=== PATIENT | male | born 1950 | race Asian ===

== ENCOUNTER 2020-10-24 18:37 | Inpatient (IN) | payer OTHER ==
[2020-10-24] VITALS (13 sets, daily range): BP systolic 113–154; BP diastolic 63–79
[~2020-10-24] VITALS: Ht 172.7 cm; Wt 77.7 kg
[2020-10-24] MEDS ORDERED: HYDRALAZINE 20MG/ML VIAL IV ONE (19:00)
[2020-10-24] MEDS ORDERED: MANNITOL 20% 500 ML IV NR (19:15)
[2020-10-24] MEDS ORDERED: LEVETIRACETAM 500MG PREMIX 100 ML IV ONE (19:15)
[2020-10-24] MEDS ORDERED: MANNITOL 20% 100 ML IV NR (19:15)
[2020-10-24] MEDS ORDERED: MANNITOL 20% (20GM/100ML) BAG 500ML PREMIX IV ONE (19:15)
[2020-10-24] MEDS ORDERED: DEXAMETHASONE 10 MG/ML VIAL IV ONE (19:15)
[2020-10-24] MEDS ORDERED: NICARDIPINE 40MG/200ML PREMIX 200 ML IV PRN (19:15)
[2020-10-24] MEDS ORDERED: NICARDIPINE 100 MG in SODIUM CHLORIDE 0.9% 60 ML IV PRN (19:15)
[2020-10-24 19:22] LABS: BASOPHILS % 0.9 % (0.0-2.0); EOSINOPHILS % 14.8 % (0.0-5.0); HEMATOCRIT. 44.3 % (42.0-52.0); HEMOGLOBIN. 15.7 g/dL (14.0-18.0); MEAN CORPUSCULAR HEMOGLOBIN 30.5 pg (28.0-32.0); MEAN CORPUSCULAR VOLUME 86.2 fL (80.0-94.0); MEAN PLATELET VOLUME 7.7 fl (7.4-10.4); MONOCYTES % 6.7 % (2.0-8.0); NEUTROPHILS % 39.6 % (40.0-76.0); PLATELET 218 x1000/uL (130-400); RED BLOOD CELL COUNT 5.14 mill/uL (4.7-6.1); RED CELL DISTRIBUTION WIDTH 13.6 % (11.6-14.6)
[2020-10-24 19:30] LABS: CHLORIDE 101 mEq/L (98-107)
[2020-10-24 19:31] LABS: INR 0.9; PROTHROMBIN TIME 10.1 sec (9.6-11.0)
[2020-10-24 19:34] LABS: ETHANOL BLOOD < 10 mg/dL
[2020-10-24 19:37] LABS: LDL CHOLESTEROL 122 mg/dL (5-100)
[2020-10-24 19:39] LABS: CREATINE KINASE 67 IU/L (39-308)
[2020-10-24] MEDS: DEXT 5%/LACTATED RINGERS 1,000 ML IV SCH (20:53)
[2020-10-24 21:55] LABS: CLARITY URINE CLEAR (CLEAR); COLOR URINE YELLOW (YELLOW); KETONES URINE NEGATIVE (NEGATIVE); LEUKOCYTE ESTERASE URINE NEGATIVE (NEGATIVE); NITRITE URINE NEGATIVE (NEGATIVE); OCCULT BLOOD URINE 2+ (NEGATIVE); PH URINE 7.5 (4.5-8.0); PROTEIN URINE 2+ (NEGATIVE); SPECIFIC GRAVITY URINE 1.013 (1.005-1.030); UROBILINOGEN URINE 0.2 E.U./dL (0.2-1.0)
[2020-10-24 22:13] LABS: *AMPHETAMINES SCREEN URINE NEGATIVE (NEGATIVE); *BARBITURATES SCREEN URINE NEGATIVE (NEGATIVE); *BENZODIAZEPINES SCREEN URINE NEGATIVE (NEGATIVE); *COCAINE SCREEN URINE NEGATIVE (NEGATIVE)
[2020-10-24 22:14] LABS: CANNABINOID URINE SCREEN NEGATIVE (NEGATIVE); METHADONE URINE SCREEN NEGATIVE (NEGATIVE); OPIATES URINE SCREEN NEGATIVE (NEGATIVE); PHENCYCLIDINE URINE SCREEN NEGATIVE (NEGATIVE)
[2020-10-24] MEDS ORDERED: DEXTROSE 50% WATER 50ML SYRINGE IV PRN (22:45)
[2020-10-24] MEDS: NICARDIPINE 100 MG in SODIUM CHLORIDE 0.9% 60 ML IV PRN (23:44)
[2020-10-24] MEDS ORDERED: KCL 20MEQ/100ML PREMIX 100 ML IV NR (23:45)
[2020-10-25] VITALS (94 sets, daily range): BP systolic 110–140; BP diastolic 63–100
[2020-10-25] MEDS: BLOOD SUGAR DIAGNOSTIC STRIP TEST SCH ×5 (00:09→20:18)
[2020-10-25] MEDS: INSULIN LISPRO 100 UNITS/ML SUBCUT SCH ×5 (00:14→20:34)
[2020-10-25] MEDS: DEXAMETHASONE 4MG/ML 1ML VIAL IV SCH ×5 (00:15→23:32)
[2020-10-25] MEDS ORDERED: FUROSEMIDE 20MG/2ML VIAL IVP NR (01:00)
[2020-10-25 06:00] LABS: CHLORIDE 104 mEq/L (98-107)
[2020-10-25 06:02] LABS: LDL CHOLESTEROL 138 mg/dL (5-100)
[2020-10-25 06:03] LABS: HDL CHOLESTEROL 41 mg/dL (40-59)
[2020-10-25 06:04] LABS: BASOPHILS % 0.3 % (0.0-2.0); EOSINOPHILS % 0.2 % (0.0-5.0); HEMATOCRIT. 43.8 % (42.0-52.0); HEMOGLOBIN. 14.8 g/dL (14.0-18.0); LYMPHOCYTES % 14.6 % (20.0-50.0); MEAN CORPUSCULAR HEMOGLOBIN 29.4 pg (28.0-32.0); MEAN CORPUSCULAR VOLUME 87.1 fL (80.0-94.0); MEAN PLATELET VOLUME 8.3 fl (7.4-10.4); MONOCYTES % 1.3 % (2.0-8.0); NEUTROPHILS % 83.6 % (40.0-76.0); PLATELET 296 x1000/uL (130-400); RED BLOOD CELL COUNT 5.03 mill/uL (4.7-6.1); RED CELL DISTRIBUTION WIDTH 13.9 % (11.6-14.6)
[2020-10-25] MEDS ORDERED: BLOOD SUGAR DIAGNOSTIC STRIP TEST SCH (06:30)
[2020-10-25] MEDS ORDERED: INSULIN LISPRO 100 UNITS/ML SUBCUT SCH (07:00)
[2020-10-25] MEDS ORDERED: LEVETIRACETAM 500MG PREMIX 100 ML IV SCH (09:00)
[2020-10-25] MEDS: LEVETIRACETAM 500MG PREMIX 100 ML IV SCH ×2 (10:11→20:18)
[2020-10-25] MEDS: PANTOPRAZOLE SODIUM 40 MG/VIAL IV SCH (10:11)
[2020-10-25] MEDS: DEXT 5%/LACTATED RINGERS 1,000 ML IV SCH (12:41)
[2020-10-25] MEDS: NICARDIPINE 100 MG in SODIUM CHLORIDE 0.9% 60 ML IV PRN (15:48)
[2020-10-25] MEDS ORDERED: KCL 20MEQ/100ML PREMIX 100 ML IV NR (17:00)
[2020-10-25] MEDS: MORPHINE SULFATE 2 MG/ML CPJ (NOT FOR IM USE) IV PRN (23:33)
[2020-10-26] VITALS (100 sets, daily range): BP systolic 34–148; BP diastolic 26–98
[2020-10-26] MEDS ORDERED: ASPI-1497 MT (03:39)
[2020-10-26] MEDS: DEXT 5%/LACTATED RINGERS 1,000 ML IV SCH ×2 (03:44→20:33)
[2020-10-26 05:33] LABS: BASOPHILS % 0.1 % (0.0-2.0); HEMOGLOBIN. 14.3 g/dL (14.0-18.0); LYMPHOCYTES % 12.1 % (20.0-50.0); MEAN CORPUSCULAR HEMOGLOBIN 29.2 pg (28.0-32.0); MEAN CORPUSCULAR VOLUME 87.8 fL (80.0-94.0); MEAN PLATELET VOLUME 8.4 fl (7.4-10.4); MONOCYTES % 2.1 % (2.0-8.0); NEUTROPHILS % 85.7 % (40.0-76.0); PLATELET 279 x1000/uL (130-400); RED CELL DISTRIBUTION WIDTH 14.4 % (11.6-14.6)
[2020-10-26 05:40] LABS: CHLORIDE 110 mEq/L (98-107)
[2020-10-26] MEDS: BLOOD SUGAR DIAGNOSTIC STRIP TEST SCH ×4 (05:59→20:33)
[2020-10-26] MEDS: DEXAMETHASONE 4MG/ML 1ML VIAL IV SCH ×3 (06:01→17:10)
[2020-10-26] MEDS: INSULIN LISPRO 100 UNITS/ML SUBCUT SCH ×4 (06:02→20:46)
[2020-10-26] MEDS: NICARDIPINE 100 MG in SODIUM CHLORIDE 0.9% 60 ML IV PRN ×2 (06:40→17:16)
[2020-10-26] MEDS: PANTOPRAZOLE SODIUM 40 MG/VIAL IV SCH (09:21)
[2020-10-26] MEDS: LEVETIRACETAM 500MG PREMIX 100 ML IV SCH ×2 (09:21→20:33)
[2020-10-26] MEDS ORDERED: POTASSIUM CHLORIDE INJ 40 MEQ in DEXT 5% WATER 250 ML IV NR (19:30)
[2020-10-27] VITALS (91 sets, daily range): BP systolic 100–146; BP diastolic 57–95
[2020-10-27] MEDS: NICARDIPINE 100 MG in SODIUM CHLORIDE 0.9% 60 ML IV PRN ×2 (04:42→17:09)
[2020-10-27 05:31] LABS: BASOPHILS % 0.1 % (0.0-2.0); HEMATOCRIT. 40.9 % (42.0-52.0); HEMOGLOBIN. 13.7 g/dL (14.0-18.0); LYMPHOCYTES % 8.3 % (20.0-50.0); MEAN CORPUSCULAR HEMOGLOBIN 29.8 pg (28.0-32.0); MEAN CORPUSCULAR VOLUME 88.7 fL (80.0-94.0); MEAN PLATELET VOLUME 8.3 fl (7.4-10.4); MONOCYTES % 2.5 % (2.0-8.0); NEUTROPHILS % 89.1 % (40.0-76.0); PLATELET 239 x1000/uL (130-400); RED BLOOD CELL COUNT 4.61 mill/uL (4.7-6.1); RED CELL DISTRIBUTION WIDTH 14.8 % (11.6-14.6)
[2020-10-27 05:34] LABS: CHLORIDE 115 mEq/L (98-107)
[2020-10-27] MEDS: BLOOD SUGAR DIAGNOSTIC STRIP TEST SCH ×4 (06:01→20:15)
[2020-10-27] MEDS: INSULIN LISPRO 100 UNITS/ML SUBCUT SCH ×4 (06:06→20:24)
[2020-10-27] MEDS: PANTOPRAZOLE SODIUM 40 MG/VIAL IV SCH (09:40)
[2020-10-27] MEDS: LEVETIRACETAM 500MG PREMIX 100 ML IV SCH ×2 (09:40→20:15)
[2020-10-27] MEDS: DEXT 5%/LACTATED RINGERS 1,000 ML IV SCH (14:38)
[2020-10-28] VITALS (87 sets, daily range): BP systolic 107–149; BP diastolic 57–106
[2020-10-28] MEDS: NICARDIPINE 100 MG in SODIUM CHLORIDE 0.9% 60 ML IV PRN ×3 (04:47→22:16)
[2020-10-28 05:53] LABS: BASOPHILS % 0.1 % (0.0-2.0); CHLORIDE 114 mEq/L (98-107); HEMATOCRIT. 44.5 % (42.0-52.0); HEMOGLOBIN. 14.8 g/dL (14.0-18.0); MEAN CORPUSCULAR HEMOGLOBIN 29.6 pg (28.0-32.0); MEAN CORPUSCULAR VOLUME 88.9 fL (80.0-94.0); MEAN PLATELET VOLUME 8.3 fl (7.4-10.4); MONOCYTES % 8.3 % (2.0-8.0); NEUTROPHILS % 76.6 % (40.0-76.0); PLATELET 216 x1000/uL (130-400); RED CELL DISTRIBUTION WIDTH 14.3 % (11.6-14.6)
[2020-10-28] MEDS: BLOOD SUGAR DIAGNOSTIC STRIP TEST SCH ×4 (06:02→21:28)
[2020-10-28] MEDS: DEXT 5%/LACTATED RINGERS 1,000 ML IV SCH ×2 (06:03→23:15)
[2020-10-28] MEDS: INSULIN LISPRO 100 UNITS/ML SUBCUT SCH ×4 (06:13→21:28)
[2020-10-28] MEDS: PANTOPRAZOLE SODIUM 40 MG/VIAL IV SCH (08:55)
[2020-10-28] MEDS: LEVETIRACETAM 500MG PREMIX 100 ML IV SCH ×2 (08:55→21:00)
[2020-10-28] MEDS ORDERED: METF-416 PO (10:30)
[2020-10-28] MEDS ORDERED: LOSA50TA41 PO (10:30)
[2020-10-28] MEDS ORDERED: AMLODIPINE PO (10:30)
[2020-10-28] MEDS ORDERED: LOSARTAN POTASSIUM 50 MG TABLET PO SCH (11:00)
[2020-10-28] MEDS: AMLODIPINE 10MG TABLET PO SCH (11:25)
[2020-10-28] MEDS: DOCUSATE SODIUM 100MG CAPSULE PO SCH (11:25)
[2020-10-28] MEDS ORDERED: POTASSIUM CHLORIDE INJ 40 MEQ in DEXT 5% WATER 250 ML IV NR (13:00)
[2020-10-28] MEDS ORDERED: LOSARTAN POTASSIUM 50 MG TABLET PO NR (15:15)
[2020-10-28] MEDS: METFORMIN HCL 500MG TABLET PO SCH (17:22)
[2020-10-28] MEDS: METOPROLOL TARTRATE 25MG TABLET PO SCH (21:28)
[2020-10-29] VITALS (98 sets, daily range): BP systolic 102–163; BP diastolic 62–96
[2020-10-29 05:48] LABS: BASOPHILS % 0.2 % (0.0-2.0); EOSINOPHILS % 1.8 % (0.0-5.0); HEMATOCRIT. 43.1 % (42.0-52.0); HEMOGLOBIN. 14.3 g/dL (14.0-18.0); LYMPHOCYTES % 25.1 % (20.0-50.0); MEAN CORPUSCULAR HEMOGLOBIN 29.4 pg (28.0-32.0); MEAN CORPUSCULAR VOLUME 88.9 fL (80.0-94.0); MEAN PLATELET VOLUME 8.6 fl (7.4-10.4); MONOCYTES % 8.1 % (2.0-8.0); NEUTROPHILS % 64.8 % (40.0-76.0); PLATELET 175 x1000/uL (130-400); RED BLOOD CELL COUNT 4.84 mill/uL (4.7-6.1); RED CELL DISTRIBUTION WIDTH 14.3 % (11.6-14.6)
[2020-10-29 05:56] LABS: CHLORIDE 113 mEq/L (98-107)
[2020-10-29] MEDS: BLOOD SUGAR DIAGNOSTIC STRIP TEST SCH ×4 (06:05→20:36)
[2020-10-29] MEDS: METFORMIN HCL 500MG TABLET PO SCH ×2 (06:06→17:12)
[2020-10-29] MEDS: INSULIN LISPRO 100 UNITS/ML SUBCUT SCH ×4 (06:07→20:37)
[2020-10-29] MEDS: NICARDIPINE 100 MG in SODIUM CHLORIDE 0.9% 60 ML IV PRN ×2 (08:16→18:48)
[2020-10-29] MEDS: LEVETIRACETAM 500MG PREMIX 100 ML IV SCH ×2 (08:58→20:14)
[2020-10-29] MEDS: DOCUSATE SODIUM 100MG CAPSULE PO SCH (08:58)
[2020-10-29] MEDS: PANTOPRAZOLE SODIUM 40 MG/VIAL IV SCH (08:58)
[2020-10-29] MEDS: METOPROLOL TARTRATE 25MG TABLET PO SCH ×2 (08:59→20:14)
[2020-10-29] MEDS: LOSARTAN POTASSIUM 100 MG TABLET PO SCH (08:59)
[2020-10-29] MEDS: AMLODIPINE 10MG TABLET PO SCH (09:00)
[2020-10-29] MEDS ORDERED: POTASSIUM CHLORIDE 20MEQ TABLET SR PO NR (12:45)
[2020-10-29] MEDS: MORPHINE SULFATE 2 MG/ML CPJ (NOT FOR IM USE) IV PRN ×3 (16:48→23:03)
[2020-10-29] MEDS: DEXT 5%/LACTATED RINGERS 1,000 ML IV SCH (17:13)
[2020-10-29] MEDS: HYDRALAZINE 20MG/ML VIAL IV PRN (19:36)
[2020-10-30] VITALS (88 sets, daily range): BP systolic 109–168; BP diastolic 69–98
[2020-10-30] MEDS: NICARDIPINE 100 MG in SODIUM CHLORIDE 0.9% 60 ML IV PRN ×4 (01:16→22:37)
[2020-10-30] MEDS: HYDRALAZINE 20MG/ML VIAL IV PRN (01:17)
[2020-10-30] MEDS: MORPHINE SULFATE 2 MG/ML CPJ (NOT FOR IM USE) IV PRN ×2 (03:42→06:22)
[2020-10-30 05:36] LABS: HEMATOCRIT. 41.3 % (42.0-52.0); MEAN CORPUSCULAR HEMOGLOBIN 29.8 pg (28.0-32.0); MEAN CORPUSCULAR VOLUME 87.8 fL (80.0-94.0); MEAN PLATELET VOLUME 8.7 fl (7.4-10.4); PLATELET 150 x1000/uL (130-400); RED CELL DISTRIBUTION WIDTH 14.1 % (11.6-14.6)
[2020-10-30] MEDS: BLOOD SUGAR DIAGNOSTIC STRIP TEST SCH ×4 (06:13→20:53)
[2020-10-30] MEDS: METFORMIN HCL 500MG TABLET PO SCH ×2 (06:13→16:08)
[2020-10-30] MEDS: INSULIN LISPRO 100 UNITS/ML SUBCUT SCH ×4 (06:14→20:53)
[2020-10-30] MEDS: PANTOPRAZOLE SODIUM 40 MG/VIAL IV SCH (08:29)
[2020-10-30] MEDS: DOCUSATE SODIUM 100MG CAPSULE PO SCH (08:30)
[2020-10-30] MEDS: LOSARTAN POTASSIUM 100 MG TABLET PO SCH (08:30)
[2020-10-30] MEDS: METOPROLOL TARTRATE 25MG TABLET PO SCH ×2 (08:30→20:52)
[2020-10-30] MEDS: DEXT 5%/LACTATED RINGERS 1,000 ML IV SCH (08:31)
[2020-10-30] MEDS: LEVETIRACETAM 500MG PREMIX 100 ML IV SCH ×2 (08:31→20:51)
[2020-10-30] MEDS ORDERED: NIFEDIPINE XL 30MG TAB PO SCH (09:00)
[2020-10-30 10:32] LABS: PLATELET ESTIMATE NORMAL
[2020-10-30] MEDS ORDERED: NIFEDIPINE XL 30MG TAB PO NR (18:00)
[2020-10-31] VITALS (97 sets, daily range): BP systolic 109–163; BP diastolic 67–125
[2020-10-31 05:33] LABS: BASOPHILS % 0.2 % (0.0-2.0); EOSINOPHILS % 0.9 % (0.0-5.0); HEMOGLOBIN. 14.2 g/dL (14.0-18.0); LYMPHOCYTES % 15.3 % (20.0-50.0); MEAN CORPUSCULAR VOLUME 88.8 fL (80.0-94.0); MEAN PLATELET VOLUME 8.7 fl (7.4-10.4); MONOCYTES % 6.1 % (2.0-8.0); NEUTROPHILS % 77.5 % (40.0-76.0); PLATELET 150 x1000/uL (130-400); RED BLOOD CELL COUNT 4.73 mill/uL (4.7-6.1); RED CELL DISTRIBUTION WIDTH 14.4 % (11.6-14.6)
[2020-10-31] MEDS: BLOOD SUGAR DIAGNOSTIC STRIP TEST SCH ×4 (06:13→21:19)
[2020-10-31] MEDS: METFORMIN HCL 500MG TABLET PO SCH ×2 (06:18→17:32)
[2020-10-31] MEDS: INSULIN LISPRO 100 UNITS/ML SUBCUT SCH ×4 (06:19→21:25)
[2020-10-31] MEDS: DEXT 5%/LACTATED RINGERS 1,000 ML IV SCH ×2 (08:29→17:32)
[2020-10-31] MEDS: PANTOPRAZOLE SODIUM 40 MG/VIAL IV SCH (08:30)
[2020-10-31] MEDS: LEVETIRACETAM 500MG PREMIX 100 ML IV SCH ×2 (08:30→21:26)
[2020-10-31] MEDS: LOSARTAN POTASSIUM 100 MG TABLET PO SCH (08:30)
[2020-10-31] MEDS: DOCUSATE SODIUM 100MG CAPSULE PO SCH (08:31)
[2020-10-31] MEDS: METOPROLOL TARTRATE 25MG TABLET PO SCH ×2 (08:31→21:25)
[2020-10-31] MEDS: NICARDIPINE 100 MG in SODIUM CHLORIDE 0.9% 60 ML IV PRN ×2 (08:32→17:33)
[2020-10-31] MEDS ORDERED: NIFEDIPINE XL 60MG TAB PO SCH (09:00)
[2020-11-01] VITALS (96 sets, daily range): BP systolic 105–148; BP diastolic 66–90
[2020-11-01 05:15] LABS: BASOPHILS % 0.2 % (0.0-2.0); EOSINOPHILS % 1.1 % (0.0-5.0); HEMOGLOBIN. 14.4 g/dL (14.0-18.0); LYMPHOCYTES % 13.2 % (20.0-50.0); MEAN CORPUSCULAR HEMOGLOBIN 30.1 pg (28.0-32.0); MEAN CORPUSCULAR VOLUME 87.8 fL (80.0-94.0); MEAN PLATELET VOLUME 8.4 fl (7.4-10.4); MONOCYTES % 7.6 % (2.0-8.0); NEUTROPHILS % 77.9 % (40.0-76.0); PLATELET 149 x1000/uL (130-400); RED BLOOD CELL COUNT 4.79 mill/uL (4.7-6.1); RED CELL DISTRIBUTION WIDTH 14.2 % (11.6-14.6)
[2020-11-01] MEDS: BLOOD SUGAR DIAGNOSTIC STRIP TEST SCH ×4 (06:11→21:00)
[2020-11-01] MEDS: METFORMIN HCL 500MG TABLET PO SCH ×2 (06:19→19:01)
[2020-11-01] MEDS: INSULIN LISPRO 100 UNITS/ML SUBCUT SCH ×4 (06:20→22:09)
[2020-11-01] MEDS: NICARDIPINE 100 MG in SODIUM CHLORIDE 0.9% 60 ML IV PRN (06:38)
[2020-11-01] MEDS ORDERED: NIFEDIPINE XL 30MG TAB PO ONE (09:00)
[2020-11-01] MEDS: LEVETIRACETAM 500MG PREMIX 100 ML IV SCH ×2 (09:12→20:51)
[2020-11-01] MEDS: HYDRALAZINE 20MG/ML VIAL IV PRN ×2 (09:12→19:01)
[2020-11-01] MEDS: LOSARTAN POTASSIUM 100 MG TABLET PO SCH (09:12)
[2020-11-01] MEDS: DOCUSATE SODIUM 100MG CAPSULE PO SCH (09:12)
[2020-11-01] MEDS: PANTOPRAZOLE SODIUM 40 MG/VIAL IV SCH (09:12)
[2020-11-01] MEDS: METOPROLOL TARTRATE 25MG TABLET PO SCH ×2 (09:15→22:06)
[2020-11-01] MEDS: DEXT 5%/LACTATED RINGERS 1,000 ML IV SCH (09:19)
[2020-11-01] MEDS ORDERED: NIFEDIPINE XL 90MG TAB PO SCH (09:30)
[2020-11-02] VITALS (64 sets, daily range): BP systolic 110–155; BP diastolic 69–105
[2020-11-02 04:31] LABS: HEMATOCRIT. 39.1 % (42.0-52.0); HEMOGLOBIN. 13.1 g/dL (14.0-18.0); MEAN CORPUSCULAR VOLUME 89.3 fL (80.0-94.0); MEAN PLATELET VOLUME 8.2 fl (7.4-10.4); PLATELET 148 x1000/uL (130-400); RED BLOOD CELL COUNT 4.38 mill/uL (4.7-6.1); RED CELL DISTRIBUTION WIDTH 14.1 % (11.6-14.6)
[2020-11-02] MEDS: BLOOD SUGAR DIAGNOSTIC STRIP TEST SCH ×4 (06:22→20:16)
[2020-11-02] MEDS: INSULIN LISPRO 100 UNITS/ML SUBCUT SCH ×4 (06:23→20:17)
[2020-11-02] MEDS: DEXT 5%/LACTATED RINGERS 1,000 ML IV SCH (06:23)
[2020-11-02] MEDS: METFORMIN HCL 500MG TABLET PO SCH ×2 (06:23→17:01)
[2020-11-02] MEDS: LEVETIRACETAM 500MG PREMIX 100 ML IV SCH ×2 (08:34→17:01)
[2020-11-02] MEDS: LOSARTAN POTASSIUM 100 MG TABLET PO SCH (08:34)
[2020-11-02] MEDS: METOPROLOL TARTRATE 25MG TABLET PO SCH ×2 (08:34→20:24)
[2020-11-02] MEDS: PANTOPRAZOLE SODIUM 40 MG/VIAL IV SCH (08:34)
[2020-11-02] MEDS: AMLODIPINE 5MG TABLET PO SCH ×2 (08:35→20:24)
[2020-11-02] MEDS: DOCUSATE SODIUM 100MG CAPSULE PO SCH (08:37)
[2020-11-02] MEDS: DEXTROSE 5% WATER 1,000 ML IV SCH ×2 (08:37→23:21)
[2020-11-02 16:10] LABS: PLATELET ESTIMATE NORMAL
[2020-11-02] MEDS ORDERED: DOCUSATE SODIUM 100MG CAPSULE PO SCH (17:00)
[2020-11-02] MEDS: METRONIDAZOLE 500 MG PREMIX 100 ML IV SCH ×2 (17:00→23:20)
[2020-11-02] MEDS: LEVOFLOXACIN 750MG PREMIX 150 ML IV SCH (17:02)
[2020-11-02 18:41] LABS: CLARITY URINE CLEAR (CLEAR); COLOR URINE YELLOW (YELLOW); KETONES URINE NEGATIVE (NEGATIVE); LEUKOCYTE ESTERASE URINE TRACE (NEGATIVE); NITRITE URINE NEGATIVE (NEGATIVE); OCCULT BLOOD URINE 3+ (NEGATIVE); PROTEIN URINE TRACE (NEGATIVE); SPECIFIC GRAVITY URINE 1.012 (1.005-1.030); UROBILINOGEN URINE 0.2 E.U./dL (0.2-1.0)
[2020-11-02] MEDS: SENNOSIDES/DOCUSATE SOD 8.6/50MG TABLET PO SCH (20:24)
[2020-11-03] VITALS (70 sets, daily range): BP systolic 126–167; BP diastolic 66–102
[2020-11-03 04:49] LABS: BASOPHILS % 0.3 % (0.0-2.0); HEMATOCRIT. 37.4 % (42.0-52.0); HEMOGLOBIN. 12.9 g/dL (14.0-18.0); LYMPHOCYTES % 20.5 % (20.0-50.0); MEAN CORPUSCULAR HEMOGLOBIN 30.2 pg (28.0-32.0); MEAN CORPUSCULAR VOLUME 87.3 fL (80.0-94.0); MONOCYTES % 7.6 % (2.0-8.0); NEUTROPHILS % 64.6 % (40.0-76.0); PLATELET 132 x1000/uL (130-400); RED BLOOD CELL COUNT 4.29 mill/uL (4.7-6.1)
[2020-11-03] MEDS: HYDRALAZINE 20MG/ML VIAL IV PRN ×2 (05:59→15:45)
[2020-11-03] MEDS: BLOOD SUGAR DIAGNOSTIC STRIP TEST SCH ×4 (05:59→20:19)
[2020-11-03] MEDS: METFORMIN HCL 500MG TABLET PO SCH ×2 (06:00→17:51)
[2020-11-03] MEDS: INSULIN LISPRO 100 UNITS/ML SUBCUT SCH ×4 (06:01→20:19)
[2020-11-03] MEDS: AMLODIPINE 5MG TABLET PO SCH ×2 (08:28→20:18)
[2020-11-03] MEDS: METOPROLOL TARTRATE 25MG TABLET PO SCH ×2 (08:28→20:18)
[2020-11-03] MEDS: LOSARTAN POTASSIUM 100 MG TABLET PO SCH (08:28)
[2020-11-03] MEDS: METRONIDAZOLE 500 MG PREMIX 100 ML IV SCH ×3 (08:33→23:17)
[2020-11-03] MEDS: PANTOPRAZOLE SODIUM 40 MG/VIAL IV SCH (08:33)
[2020-11-03] MEDS: POLYETHYLENE GLYCOL 3350 (17GM) 1 DOSE PACK PO SCH (08:33)
[2020-11-03] MEDS ORDERED: POLYETHYLENE GLYCOL 3350 (17GM) 1 DOSE PACK PO SCH (09:00)
[2020-11-03] MEDS ORDERED: POTASSIUM CHLORIDE 20MEQ TABLET SR PO SCH (09:15)
[2020-11-03] MEDS ORDERED: MAGNESIUM 2 G PREMIX 50 ML IV ONE (09:30)
[2020-11-03] MEDS: LEVETIRACETAM 500MG PREMIX 100 ML IV SCH ×2 (09:30→20:18)
[2020-11-03] MEDS: DEXTROSE 5% WATER 1,000 ML IV SCH (20:19)
[2020-11-03] MEDS: SENNOSIDES/DOCUSATE SOD 8.6/50MG TABLET PO SCH (20:19)
[2020-11-04] VITALS (25 sets, daily range): BP systolic 118–165; BP diastolic 75–95
[2020-11-04] MEDS: HYDRALAZINE 20MG/ML VIAL IV PRN (00:30)
[2020-11-04 05:45] LABS: HEMOGLOBIN. 13.6 g/dL (14.0-18.0); MEAN CORPUSCULAR HEMOGLOBIN 29.8 pg (28.0-32.0); MEAN CORPUSCULAR VOLUME 87.5 fL (80.0-94.0); MEAN PLATELET VOLUME 8.6 fl (7.4-10.4); PLATELET 146 x1000/uL (130-400); RED BLOOD CELL COUNT 4.57 mill/uL (4.7-6.1); RED CELL DISTRIBUTION WIDTH 13.8 % (11.6-14.6)
[2020-11-04 05:53] LABS: CHLORIDE 105 mEq/L (98-107)
[2020-11-04 06:01] LABS: PHOSPHORUS 2.5 mg/dL (2.5-4.9)
[2020-11-04] MEDS: BLOOD SUGAR DIAGNOSTIC STRIP TEST SCH ×4 (07:47→20:24)
[2020-11-04] MEDS: PANTOPRAZOLE SODIUM 40 MG/VIAL IV SCH (07:58)
[2020-11-04] MEDS: METRONIDAZOLE 500 MG PREMIX 100 ML IV SCH ×3 (07:58→23:55)
[2020-11-04] MEDS: POLYETHYLENE GLYCOL 3350 (17GM) 1 DOSE PACK PO SCH (07:58)
[2020-11-04] MEDS: LEVETIRACETAM 500MG PREMIX 100 ML IV SCH ×2 (07:59→20:23)
[2020-11-04] MEDS: LOSARTAN POTASSIUM 50 MG TABLET PO SCH (07:59)
[2020-11-04] MEDS: METOPROLOL TARTRATE 25MG TABLET PO SCH ×2 (07:59→20:23)
[2020-11-04] MEDS: METFORMIN HCL 500MG TABLET PO SCH ×2 (08:00→17:06)
[2020-11-04] MEDS: AMLODIPINE 5MG TABLET PO SCH ×2 (08:00→20:24)
[2020-11-04] MEDS: INSULIN LISPRO 100 UNITS/ML SUBCUT SCH ×4 (08:01→20:24)
[2020-11-04] MEDS: ASPIRIN 81MG EC TABLET PO SCH (08:11)
[2020-11-04] MEDS ORDERED: POTASSIUM CHLORIDE INJ 40 MEQ in DEXT 5% WATER 250 ML IV NR (10:30)
[2020-11-04 11:25] LABS: PLATELET ESTIMATE NORMAL
[2020-11-04] MEDS: LEVOFLOXACIN 750MG PREMIX 150 ML IV SCH (17:05)
[2020-11-04] MEDS: SENNOSIDES/DOCUSATE SOD 8.6/50MG TABLET PO SCH (20:24)
[2020-11-04] MEDS ORDERED: KCL 20MEQ/100ML PREMIX 100 ML IV NR (21:00)
[2020-11-04] MEDS: CLONIDINE 0.2MG TABLET PO SCH (23:54)
[2020-11-05] VITALS (13 sets, daily range): BP systolic 105–162; BP diastolic 73–93
[2020-11-05] MEDS: CLONIDINE 0.2MG TABLET PO SCH ×3 (05:41→22:06)
[2020-11-05 06:39] LABS: BASOPHILS % 0.3 % (0.0-2.0); HEMATOCRIT. 35.5 % (42.0-52.0); HEMOGLOBIN. 12.5 g/dL (14.0-18.0); LYMPHOCYTES % 18.4 % (20.0-50.0); MEAN CORPUSCULAR HEMOGLOBIN 30.7 pg (28.0-32.0); MEAN CORPUSCULAR VOLUME 87.6 fL (80.0-94.0); MEAN PLATELET VOLUME 8.4 fl (7.4-10.4); NEUTROPHILS % 68.3 % (40.0-76.0); PLATELET 130 x1000/uL (130-400); RED BLOOD CELL COUNT 4.06 mill/uL (4.7-6.1); RED CELL DISTRIBUTION WIDTH 13.2 % (11.6-14.6)
[2020-11-05 06:56] LABS: CHLORIDE 104 mEq/L (98-107)
[2020-11-05 07:01] LABS: PHOSPHORUS 2.3 mg/dL (2.5-4.9)
[2020-11-05] MEDS: BLOOD SUGAR DIAGNOSTIC STRIP TEST SCH ×4 (07:33→21:00)
[2020-11-05] MEDS: METFORMIN HCL 500MG TABLET PO SCH ×2 (07:42→17:21)
[2020-11-05] MEDS: METRONIDAZOLE 500 MG PREMIX 100 ML IV SCH ×2 (07:42→16:17)
[2020-11-05] MEDS: INSULIN LISPRO 100 UNITS/ML SUBCUT SCH ×4 (07:45→21:00)
[2020-11-05] MEDS: AMLODIPINE 5MG TABLET PO SCH ×2 (09:00→22:07)
[2020-11-05] MEDS: ASPIRIN 81MG EC TABLET PO SCH (09:06)
[2020-11-05] MEDS: LOSARTAN POTASSIUM 50 MG TABLET PO SCH (09:06)
[2020-11-05] MEDS: POLYETHYLENE GLYCOL 3350 (17GM) 1 DOSE PACK PO SCH (09:06)
[2020-11-05] MEDS: PANTOPRAZOLE SODIUM 40 MG/VIAL IV SCH (09:06)
[2020-11-05] MEDS: LEVETIRACETAM 500MG PREMIX 100 ML IV SCH ×2 (09:14→22:09)
[2020-11-05] MEDS: METOPROLOL TARTRATE 25MG TABLET PO SCH ×2 (10:19→22:09)
[2020-11-05] MEDS ORDERED: POTASSIUM CHLORIDE INJ 40 MEQ in DEXT 5% WATER 250 ML IV NR (11:00)
[2020-11-05] MEDS ORDERED: POTASSIUM-SODIUM PHOSPHATE POWDER PACKET PO ONE (11:00)
[2020-11-05] MEDS ORDERED: POTASSIUM CHLORIDE 20MEQ/PACKET PO NR (18:00)
[2020-11-05] MEDS: SENNOSIDES/DOCUSATE SOD 8.6/50MG TABLET PO SCH (22:09)
[2020-11-06] VITALS (12 sets, daily range): BP systolic 108–156; BP diastolic 67–96
[2020-11-06] MEDS: METRONIDAZOLE 500 MG PREMIX 100 ML IV SCH ×3 (00:16→16:40)
[2020-11-06] MEDS: CLONIDINE 0.2MG TABLET PO SCH ×3 (05:40→21:03)
[2020-11-06 06:47] LABS: BASOPHILS % 0.5 % (0.0-2.0); EOSINOPHILS % 8.3 % (0.0-5.0); HEMATOCRIT. 34.9 % (42.0-52.0); HEMOGLOBIN. 12.3 g/dL (14.0-18.0); LYMPHOCYTES % 17.5 % (20.0-50.0); MEAN CORPUSCULAR HEMOGLOBIN 30.6 pg (28.0-32.0); MEAN CORPUSCULAR VOLUME 87.4 fL (80.0-94.0); MEAN PLATELET VOLUME 8.2 fl (7.4-10.4); MONOCYTES % 6.2 % (2.0-8.0); NEUTROPHILS % 67.5 % (40.0-76.0); PLATELET 138 x1000/uL (130-400)
[2020-11-06 07:13] LABS: PHOSPHORUS 2.4 mg/dL (2.5-4.9)
[2020-11-06] MEDS: BLOOD SUGAR DIAGNOSTIC STRIP TEST SCH ×4 (07:30→21:03)
[2020-11-06] MEDS: INSULIN LISPRO 100 UNITS/ML SUBCUT SCH ×4 (08:00→21:00)
[2020-11-06] MEDS: ASPIRIN 81MG EC TABLET PO SCH (08:43)
[2020-11-06] MEDS: METFORMIN HCL 500MG TABLET PO SCH ×2 (08:43→18:10)
[2020-11-06] MEDS: LOSARTAN POTASSIUM 50 MG TABLET PO SCH ×2 (08:43→18:10)
[2020-11-06] MEDS: PANTOPRAZOLE SODIUM 40 MG/VIAL IV SCH (08:43)
[2020-11-06] MEDS: METOPROLOL TARTRATE 25MG TABLET PO SCH ×2 (08:44→21:02)
[2020-11-06] MEDS: POLYETHYLENE GLYCOL 3350 (17GM) 1 DOSE PACK PO SCH (08:58)
[2020-11-06] MEDS: AMLODIPINE 5MG TABLET PO SCH ×2 (09:49→21:03)
[2020-11-06] MEDS ORDERED: POTASSIUM-SODIUM PHOSPHATE POWDER PACKET PO NR (10:00)
[2020-11-06] MEDS: LEVETIRACETAM 500MG PREMIX 100 ML IV SCH ×2 (10:34→21:01)
[2020-11-06] MEDS ORDERED: CLON0.2T PO (10:35)
[2020-11-06] MEDS ORDERED: METF500T PO (10:35)
[2020-11-06] MEDS ORDERED: AMLO5TAB88 PO (10:35)
[2020-11-06] MEDS ORDERED: METO25TA6 PO (10:35)
[2020-11-06] MEDS ORDERED: LOSA50TA3 PO (10:35)
[2020-11-06] MEDS ORDERED: POTASSIUM CHLORIDE 20MEQ/PACKET PO SCH (11:30)
[2020-11-06] MEDS: LEVOFLOXACIN 750MG PREMIX 150 ML IV SCH (17:01)
[2020-11-06] MEDS: SENNOSIDES/DOCUSATE SOD 8.6/50MG TABLET PO SCH (21:02)
[2020-11-07] VITALS (8 sets, daily range): BP systolic 139–149; BP diastolic 84–91
[2020-11-07] MEDS: METRONIDAZOLE 500 MG PREMIX 100 ML IV SCH ×2 (00:31→07:53)
[2020-11-07] MEDS: CLONIDINE 0.2MG TABLET PO SCH (05:25)
[2020-11-07] MEDS: INSULIN LISPRO 100 UNITS/ML SUBCUT SCH ×2 (07:52→12:02)
[2020-11-07] MEDS: BLOOD SUGAR DIAGNOSTIC STRIP TEST SCH ×2 (07:52→12:01)
[2020-11-07] MEDS: METFORMIN HCL 500MG TABLET PO SCH (07:53)
[2020-11-07] MEDS: LEVETIRACETAM 500MG PREMIX 100 ML IV SCH (09:18)
[2020-11-07] MEDS: AMLODIPINE 5MG TABLET PO SCH (09:19)
[2020-11-07] MEDS: POLYETHYLENE GLYCOL 3350 (17GM) 1 DOSE PACK PO SCH (09:19)
[2020-11-07] MEDS: LOSARTAN POTASSIUM 50 MG TABLET PO SCH (09:19)
[2020-11-07] MEDS: PANTOPRAZOLE SODIUM 40 MG/VIAL IV SCH (09:19)
[2020-11-07] MEDS: METOPROLOL TARTRATE 25MG TABLET PO SCH (09:19)
[2020-11-08] MEDS ORDERED: ISOSORBIDE MONONITRATE 30MG TABLET SR 24HR PO SCH (09:00)
== END 2020-11-07 13:55 | disposition home or self-care (01) | DRG 65 ==
LOC: ER 18:37 → EDBEDREQSVC 19:56 → EDBEDREQTM 19:56 → EDBEDREQ 19:56 → MICUSO 20:32 → 5EST 11-04 04:19
PROVIDERS: ADMIT Internal Medicine; ATTEND Internal Medicine
PROC: 30233N1 Transfusion of Nonautologous Red Blood Cells into Peripheral Vein, Percutaneous Approach (ICD-10-PCS; 2020-10-24)
PROC: 4A10X4Z Monitoring of Central Nervous Electrical Activity, External Approach (ICD-10-PCS; principal; 2020-11-06)
DX: I61.5 Nontraumatic intracerebral hemorrhage, intraventricular (principal); G93.40 Encephalopathy, unspecified; R47.01 Aphasia; G81.91 Hemiplegia, unspecified affecting right dominant side; R41.4 Neurologic neglect syndrome; N17.9 Acute kidney failure, unspecified; E87.0 Hyperosmolality and hypernatremia; I25.10 Atherosclerotic heart disease of native coronary artery without angina pectoris; E11.9 Type 2 diabetes mellitus without complications; E78.5 Hyperlipidemia, unspecified; E87.6 Hypokalemia; I10 Essential (primary) hypertension; R53.81 Other malaise; E78.00 Pure hypercholesterolemia, unspecified; R47.1 Dysarthria and anarthria; K82.8 Other specified diseases of gallbladder; R16.0 Hepatomegaly, not elsewhere classified; K44.9 Diaphragmatic hernia without obstruction or gangrene; K40.90 Unilateral inguinal hernia, without obstruction or gangrene, not specified as recurrent; I71.4 Abdominal aortic aneurysm, without rupture; Z78.1 Physical restraint status; R13.10 Dysphagia, unspecified; K76.0 Fatty (change of) liver, not elsewhere classified; N20.0 Calculus of kidney; K52.9 Noninfective gastroenteritis and colitis, unspecified; K59.00 Constipation, unspecified; D64.9 Anemia, unspecified; R33.9 Retention of urine, unspecified; E83.42 Hypomagnesemia; E83.39 Other disorders of phosphorus metabolism; K62.89 Other specified diseases of anus and rectum; Z79.899 Other long term (current) drug therapy; Z82.49 Family history of ischemic heart disease and other diseases of the circulatory system
CPT/HCPCS: 36415; 70544; 70553; 71045; 74176; 76700; 80048; 80053; 80061; 80305; 80320; 81003; 82043; 82550; 82570; 82962; 83036; 83605; 83721; 83735; 83880; 83935; 84100; 84300; 84484; 85025; 86850; 86900; 86945; 92610; 93005; 93306; 93880; 93970; 93971; 97110; 97112; 97163; 97166; 97530; 97535; 99291; A6261; C9113; J0360; J1100; J1815; J1940; J1953; J1956; J2270; J3475; J3480; J3490; J7050; J7060; J7070; P9034; A4315; G0480